=== PATIENT | female | born 1945 | race Caucasian/White ===

== ENCOUNTER 2022-12-06 06:51 | Day surgery (SDC) | payer MEDICARE, OTHER ==
[~2022-12-06] VITALS: Ht 149.9 cm; Wt 46.3 kg
[~2022-12-06 06:51] MED LIST: ALBU18HF12 IH; AMLO10TA55 PO; FLUT1DIS6 IH; HYDR25TA PO; PLEC3TAB2 PO
[2022-12-06] MEDS ORDERED: RINGERS SOLUTION,LACTATED 1,000 ML IV ONE ×2 (07:00→07:41)
[2022-12-06] MEDS ORDERED: LIDOCAINE 2%/EPI 1:200,000/PF 20 ML VIAL ONE (08:21)
[2022-12-06] MEDS ORDERED: BUPIVACAINE HCL/PF 0.5% 30 ML VIAL ONE (08:21)
[2022-12-06] MEDS ORDERED: CEFUROXIME SODIUM 1.5 GM in DEXTROSE 5%-WATER 50 ML IV ONE (09:00)
[2022-12-06] MEDS ORDERED: HYDROmorphone HCL 2 MG/ML SYRINGE IVP PRN (10:15)
[2022-12-06] MEDS ORDERED: ACETAMINOPHEN 500 MG TABLET PO PRN (10:30)
[2022-12-06] MEDS ORDERED: IBUPROFEN 800 MG TABLET PO PRN (10:30)
[2022-12-06] MEDS ORDERED: FentaNYL CITRATE PF 100 MCG/2 ML VIAL ONE (10:40)
[2022-12-06] MEDS: FentaNYL CITRATE PF 100 MCG/2 ML VIAL IVP PRN ×2 (10:43→11:00)
[2022-12-06] MEDS ORDERED: PROPOFOL 1% 20 ML VIAL IVP ONE (12:00)
[2022-12-06] MEDS ORDERED: GLYCOPYRROLATE 0.2 MG/ML VIAL IM ONE (12:00)
[2022-12-06] MEDS ORDERED: ONDANSETRON HCL 4 MG/2 ML VIAL IVP ONE (12:00)
[2022-12-06] MEDS ORDERED: LIDOCAINE/PF 2% 5 ML VIAL IM ONE (12:00)
[2022-12-06] MEDS ORDERED: ROCURONIUM BROMIDE 10 MG/ML 5 ML VIAL IVP ONE (12:00)
[2022-12-06] MEDS ORDERED: FentaNYL CITRATE PF 100 MCG/2 ML VIAL IVP ONE (12:00)
[2022-12-06] MEDS ORDERED: KETOROLAC TROMETHAMINE 60 MG/2 ML VIAL IM ONE (12:00)
[2022-12-06] MEDS ORDERED: OXYGEN THERAPY IH SCH (20:00)
== END 2022-12-06 12:30 | disposition home or self-care (01) ==
LOC: SURGERY 06:51
PROVIDERS: ATTEND Surgery
DX: K40.90 Unilateral inguinal hernia, without obstruction or gangrene, not specified as recurrent (principal); Z79.899 Other long term (current) drug therapy; Z90.710 Acquired absence of both cervix and uterus; Z88.0 Allergy status to penicillin; Z91.013 Allergy to seafood; I10 Essential (primary) hypertension; I48.91 Unspecified atrial fibrillation; Z98.890 Other specified postprocedural states
CPT/HCPCS: 49650; 93005; C1781; J3490 ×4; J2704; J0697; J3010; J1885; J2405; J7060; J7120